=== PATIENT | male | born 1940 | race Caucasian/White ===

== ENCOUNTER 2017-06-20 10:40 | Inpatient (IN) | payer MEDICARE, BC ==
[2017-06-20 11:30] LABS: CHLORIDE,CL 100 mEq/L (98-106); SODIUM,NA 134 mEq/L (136-145)
--- NOTE | 2017-06-20 12:20 | EDM.PDOC ---
ED HPI GENERAL MEDICAL PROBLEM - General Chief Complaint: Syncope Stated Complaint: LOC-FEW SECONDS Time Seen by Provider: 06/20/17 11:10 Source of Information: Reports: Patient, Family History Limitations: Reports: No Limitations - History of Present Illness INITIAL COMMENTS - FREE TEXT/NARRATIVE: Patient presents to ER per EMS with syncopal episode. Has been experiencing cold symptoms for the last 3 days. States has been taking multiple doses of aspirin to "clean it out". Has had mild cough with phlegm production. Does believe he has had fevers as he has been flushed, hot and cold but has not checked his temp. He has not eaten much over the last 2 days. States has been drinking lots of fluids. Denies chest pain or shortness or breath. No palpitations. History of angioplasty in the 80s but has been stable since then other than having issues with his blood pressure at times. Has not noted any swelling in his legs as of late. Onset: Today, Sudden Duration: Day(s): (has been ill for several days, syncopal episode this am) Location: Reports: Head, Chest, Generalized Improves with: Reports: Rest Associated Symptoms: Reports: Cough, cough w sputum, Fever/Chills, Loss of Appetite, Shortness of Breath, Syncope, Weakness. 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 - Related Data Allergies Allergy/AdvReac Type Severity Reaction Status Date / Time No Known Allergies Allergy Verified 06/20/17 10:55 Home Meds: Home Meds Aspirin 325 mg PO DAILY 06/20/17 [History] Erythromycin Base [Erythromycin] 500 mg PO BID 06/20/17 [History] Erythromycin Stearate 500 mg PO BID 06/20/17 [History] Hydrochlorothiazide 25 mg PO DAILY 06/20/17 [History] Losartan Potassium 100 mg PO DAILY 06/20/17 [History] amLODIPine [Norvasc] 5 mg PO DAILY 06/20/17 [History] cloNIDine HCl [Catapres] 0.3 mg PO BID 06/20/17 [History] Past Medical History Cardiovascular History: Reports: Afib, Arrhythmia, Hypertension Gastrointestinal History: Reports: Hiatal Hernia - Past Surgical History HEENT Surgical History: Reports: Eye Surgery Social & Family History - Family History Family Medical History: Noncontributory - Tobacco Use Smoking Status *Q: Former Smoker Used Tobacco, but Quit: Yes Month Tobacco Last Used: 1980 - Caffeine Use Caffeine Use: Reports: Coffee - Recreational Drug Use Recreational Drug Use: No ED ROS GENERAL - Review of Systems Review Of Systems: See Below Constitutional: Reports: Fever, Chills, Malaise, Weakness, Fatigue, Decreased Appetite HEENT: Reports: Rhinitis, Sinus Problem. Denies: Ear Pain, Throat Pain, Vertigo Respiratory: Reports: Cough, Sputum. Denies: Shortness of Breath Cardiovascular: Denies: Chest Pain, Edema, Lightheadedness Endocrine: Reports: Fatigue GI/Abdominal: Reports: Decreased Appetite. Denies: Abdominal Pain, Nausea, Vomiting : Reports: No Symptoms Musculoskeletal: Reports: No Symptoms Skin: Reports: No Symptoms Neurological: Reports: Syncope, Weakness. Denies: Headache ED EXAM, GENERAL - Physical Exam Exam: See Below Exam Limited By: No Limitations General Appearance: Alert, WD/WN, No Apparent Distress Ears: Normal External Exam, Normal TMs Nose: Normal Inspection, Normal Mucosa, No Blood Throat/Mouth: Normal Inspection, Normal Oropharynx Head: Normocephalic Neck: Normal Inspection, Supple, Non-Tender Respiratory/Chest: No Respiratory Distress, Lungs Clear, Normal Breath Sounds Cardiovascular: Irregularly Irregular GI/Abdominal: Normal Bowel Sounds, Soft, Non-Tender Extremities: Normal Inspection, No Pedal Edema Neurological: Alert, Oriented Psychiatric: Normal Affect, Normal Mood Skin Exam: Warm, Dry Course - Vital Signs Last Recorded V/S: Last Vital Signs Temp 101.4 F H 06/20/17 12:41 Pulse 79 06/20/17 12:41 Resp 18 06/20/17 12:41 BP 96/50 L 06/20/17 12:41 Pulse Ox 94 L 06/20/17 12:41 - Orders/Labs/Meds Orders: Active Orders 24 hr Category Date Time Status Patient Status [ADT] Routine ADT 06/20/17 12:41 Active Cardiac Monitoring [RC] Care 06/20/17 12:41 Active Oxygen Therapy [RC] .PRN Care 06/20/17 12:41 Active Peripheral IV Care [RC] 799,1999 Care 06/20/17 12:41 Active RT Aerosol Therapy [RC] .PRN Care 06/20/17 12:41 Active Up With Assistance [RC] .PRN Care 06/20/17 12:41 Active Vital Signs [RC] 0000,0400,0800,1200,1600,2000 Care 06/20/17 12:41 Active Regular Diet [DIET] Diet 06/20/17 Lunch Active Ang Chest [CT] Routine Exams 06/20/17 12:41 Taken Chest 2V [CR] Stat Exams 06/20/17 11:03 Taken Echo Comp wo Cont [US] Routine Exams 06/20/17 12:41 Ordered Head wo Cont [CT] Stat Exams 06/20/17 11:19 Taken BASIC METABOLIC PANEL,BMP [CHEM] AM Lab 06/21/17 05:11 Ordered C-REACTIVE PROTEIN [CHEM] AM Lab 06/21/17 05:11 Ordered CBC WITH AUTO DIFF [HEME] AM Lab 06/21/17 05:11 Ordered UA W/MICROSCOPIC [URIN] Stat Lab 06/20/17 11:03 Uncollected Acetaminophen [Tylenol] Med 06/20/17 12:41 Active 650 mg PO Q4H PRN Albuterol/Ipratropium [DuoNeb 3.0-0.5 MG/3 ML] Med 06/20/17 12:41 Active 3 ml NEB Q4H PRN Aspirin [Ecotrin] Med 06/21/17 08:00 Active 325 mg PO DAILY Azithromycin [Zithromax] 500 mg Med 06/20/17 13:00 Active Sodium Chloride 0.9% [Normal Saline] 250 ml IV Q24H Hydrochlorothiazide Med 06/21/17 08:00 Active 25 mg PO DAILY Losartan [Cozaar] Med 06/21/17 08:00 Active 100 mg PO DAILY Metoprolol Succinate [Toprol XL] Med 06/21/17 08:00 Active 50 mg PO DAILY Ondansetron [Zofran ODT] Med 06/20/17 12:41 Active 4 mg PO Q4H PRN Ondansetron [Zofran] Med 06/20/17 12:41 Active 4 mg IV Q4H PRN Sodium Chloride 0.9% [Normal Saline] 1,000 ml Med 06/20/17 12:45 Active IV ASDIRECTED Sodium Chloride 0.9% [Saline Flush] Med 06/20/17 12:41 Active 10 ml FLUSH ASDIRECTED PRN Temazepam [Restoril] Med 06/20/17 12:41 Active 15 mg PO BEDTIME PRN Warfarin [Coumadin] Med 06/20/17 12:45 Active 5 mg PO DAILY@1200 cefTRIAXone [Rocephin] Med 06/20/17 13:00 Active 1 gm IVPUSH Q24H Peripheral IV Insertion Adult [OM.PC] Routine Oth 06/20/17 12:41 Ordered Resuscitation Status Routine Resus Stat 06/20/17 12:31 Ordered Medication Orders Acetaminophen (Tylenol) 650 mg PO Q4H PRN PRN Reason: Pain (Mild 1-3)/fever Last Admin: 06/20/17 13:11 Dose: 650 mg Albuterol/Ipratropium (Duoneb 3.0-0.5 Mg/3 Ml) 3 ml NEB Q4H PRN PRN Reason: Shortness Of Breath/wheezing Aspirin (Ecotrin) 325 mg PO DAILY [facility] Ceftriaxone Sodium (Rocephin) 1 gm IVPUSH Q24H [facility] Last Admin: 06/20/17 13:12 Dose: 1 gm Hydrochlorothiazide (Hydrochlorothiazide) 25 mg PO DAILY [facility] Azithromycin 500 mg/ Sodium (Chloride) 250 mls @ 250 mls/hr IV Q24H [facility] Last Admin: 06/20/17 13:11 Dose: 250 mls/hr Sodium Chloride (Normal Saline) 1,000 mls @ 75 mls/hr IV ASDIRECTED [facility] Last Admin: 06/20/17 13:12 Dose: 75 mls/hr Losartan Potassium (Cozaar) 100 mg PO DAILY [facility] Metoprolol Succinate (Toprol Xl) 50 mg PO DAILY [facility] Ondansetron HCl (Zofran Odt) 4 mg PO Q4H PRN PRN Reason: nausea, able to take PO Ondansetron HCl (Zofran) 4 mg IV Q4H PRN PRN Reason: Nausea/Vomiting Sodium Chloride (Saline Flush) 10 ml FLUSH ASDIRECTED PRN PRN Reason: Keep Vein Open Temazepam (Restoril) 15 mg PO BEDTIME PRN PRN Reason: Sleep Warfarin Sodium (Coumadin) 5 mg PO DAILY@1200 [facility] Last Admin: 06/20/17 13:12 Dose: 5 mg Labs: Laboratory Tests 06/20/17 06/20/17 06/20/17 Range/Units 11:10 11:10 11:19 WBC 6.2 (5.0-10.0) 10^3/uL RBC 4.48 L (4.50-6.00) 10^6/uL Hgb 14.5 (14.0-18.0) g/dL Hct 42.5 (40.0-54.0) % MCV 94.9 H (82.0-94.0) fL MCH 32.4 H (27.0-32.0) pg MCHC 34.1 (33.0-38.0) g/dL RDW Coeff of Radha 12.6 (11.0-15.0) % Plt Count 148 L (150-400) 10^3/uL Neut % (Auto) 77.2 (35-85) % Lymph % (Auto) 7.7 L (10-55) % [place] % (Auto) 14.6 (0-16) % Eos % (Auto) 0 (0-5) % Baso % (Auto) 0.5 (0-3) % Neut # (Auto) 4.80 (1.80-7.00) 10^3/uL Lymph # (Auto) 0.48 L (1.00-4.80) 10^3/uL [place] # (Auto) 0.91 H (0.00-0.80) 10^3/uL Eos # (Auto) 0.00 (0.00-0.45) 10^3/uL Baso # (Auto) 0.03 10^3/uL PT (9.7-12.3) SEC INR (0.92-1.18) D-Dimer, Quantitative 2.05 H (0.00-0.50) Sodium 134 L (136-145) mEq/L Potassium 4.0 (3.5-5.0) mEq/L Chloride 100 (98-106) mEq/L Carbon Dioxide 26 (21-32) mmol/L BUN 20 H (7-18) mg/dL Creatinine 1.6 H (0.7-1.3) mg/dL Est Cr Clr Drug Dosing 38.59 mL/min Estimated GFR (MDRD) 42 L (>=60) mL/min Glucose 125 H (75-99) mg/dL Calcium 8.3 L (8.4-10.1) mg/dL Total Bilirubin 0.7 (0.0-1.0) mg/dL AST 25 (15-37) U/L ALT 30 (12-78) U/L Alkaline Phosphatase 63 (46-116) U/L Lactate Dehydrogenase 126 (100-190) U/L Creatine Kinase 60 (35-232) U/L Troponin I < 0.017 (0.00-0.06) ng/mL C-Reactive Protein 6.9 H (0.2-0.8) mg/dL Total Protein 7.3 (6.4-8.2) g/dL Albumin 3.4 (3.4-5.0) g/dL 06/20/17 Range/Units 11:19 WBC (5.0-10.0) 10^3/uL RBC (4.50-6.00) 10^6/uL Hgb (14.0-18.0) g/dL Hct (40.0-54.0) % MCV (82.0-94.0) fL MCH (27.0-32.0) pg MCHC (33.0-38.0) g/dL RDW Coeff of Radha (11.0-15.0) % Plt Count (150-400) 10^3/uL Neut % (Auto) (35-85) % Lymph % (Auto) (10-55) % [place] % (Auto) (0-16) % Eos % (Auto) (0-5) % Baso % (Auto) (0-3) % Neut # (Auto) (1.80-7.00) 10^3/uL Lymph # (Auto) (1.00-4.80) 10^3/uL [place] # (Auto) (0.00-0.80) 10^3/uL Eos # (Auto) (0.00-0.45) 10^3/uL Baso # (Auto) 10^3/uL PT 12.6 H (9.7-12.3) SEC INR 1.16 (0.92-1.18) D-Dimer, Quantitative (0.00-0.50) Sodium (136-145) mEq/L Potassium (3.5-5.0) mEq/L Chloride (98-106) mEq/L Carbon Dioxide (21-32) mmol/L BUN (7-18) mg/dL Creatinine (0.7-1.3) mg/dL Est Cr Clr Drug Dosing mL/min Estimated GFR (MDRD) (>=60) mL/min Glucose (75-99) mg/dL Calcium (8.4-10.1) mg/dL Total Bilirubin (0.0-1.0) mg/dL AST (15-37) U/L ALT (12-78) U/L Alkaline Phosphatase (46-116) U/L Lactate Dehydrogenase (100-190) U/L Creatine Kinase (35-232) U/L Troponin I (0.00-0.06) ng/mL C-Reactive Protein (0.2-0.8) mg/dL Total Protein (6.4-8.2) g/dL Albumin (3.4-5.0) g/dL Meds: Medications Generic Name Dose Route Start Last Admin Trade Name Freq PRN Reason Stop Dose Admin Acetaminophen 650 mg 06/20/17 12:41 06/20/17 13:11 Tylenol PO 650 mg Q4H PRN Administration Pain (Mild 1-3)/fever Albuterol/Ipratropium 3 ml 06/20/17 12:41 Duoneb 3.0-0.5 Mg/3 Ml NEB Q4H PRN Shortness Of Breath/wheezing Aspirin 325 mg 06/21/17 08:00 Ecotrin PO DAILY [facility] Ceftriaxone Sodium 1 gm 06/20/17 13:00 06/20/17 13:12 Rocephin IVPUSH 1 gm Q24H GIAN Administration Hydrochlorothiazide 25 mg 06/21/17 08:00 Hydrochlorothiazide PO DAILY [facility] Azithromycin 500 mg/ Sodium 250 mls @ 250 mls/hr 06/20/17 13:00 06/20/17 13: 11 Chloride IV 250 mls/hr Q24H GIAN Administration Sodium Chloride 1,000 mls @ 75 mls/hr 06/20/17 12:45 06/20/17 13:12 Normal Saline IV 75 mls/hr ASDIRECTED GIAN Administration Losartan Potassium 100 mg 06/21/17 08:00 Cozaar PO DAILY [facility] Metoprolol Succinate 50 mg 06/21/17 08:00 Toprol Xl PO DAILY [facility] Ondansetron HCl 4 mg 06/20/17 12:41 Zofran Odt PO Q4H PRN nausea, able to take PO Ondansetron HCl 4 mg 06/20/17 12:41 Zofran IV Q4H PRN Nausea/Vomiting Sodium Chloride 10 ml 06/20/17 12:41 Saline Flush FLUSH ASDIRECTED PRN Keep Vein Open Temazepam 15 mg 06/20/17 12:41 Restoril PO BEDTIME PRN Sleep Warfarin Sodium 5 mg 06/20/17 12:45 06/20/17 13:12 Coumadin PO 5 mg DAILY@1200 GIAN Administration Discontinued Medications Generic Name Dose Route Start Last Admin Trade Name Raf PRN Reason Stop Dose Admin Iopamidol 100 ml 06/20/17 12:49 06/20/17 13:13 Isovue-370 (76%) IVPUSH 06/20/17 12:50 100 ml ONETIME ONE Administration - Re-Assessments/Exams Free Text/Narrative Re-Assessment/Exam: 06/20/17 1230 Discussed all lab results and EKG findings with patient and . Advised of medications changes on admit. Will pursue CT scan to rule out PE. Departure - Departure Time of Disposition: 12:14 Disposition: Admitted As Inpatient 67 Condition: Fair Clinical Impression: Syncope, Atrial fibrillation, new onset Pneumonia Qualifiers: Pneumonia type: due to unspecified organism Laterality: right Lung location: lower lobe of lung Qualified Code(s): J18.1 - Lobar pneumonia, unspecified organism - Problem List & Annotations (1) Atrial fibrillation, new onset SNOMED Code(s): 47254336 Code(s): I48.91 - UNSPECIFIED ATRIAL FIBRILLATION Status: Acute Priority : High Current Visit: Yes (2) Pneumonia SNOMED Code(s): 461271271 Code(s): J18.9 - PNEUMONIA, UNSPECIFIED ORGANISM Status: Acute Priority: High Current Visit: Yes Qualifiers: Pneumonia type: due to unspecified organism Laterality: right Lung location: lower lobe of lung Qualified Code(s): J18.1 - Lobar pneumonia, unspecified organism (3) Syncope SNOMED Code(s): 505440188 Code(s): R55 - SYNCOPE AND COLLAPSE Status: Acute Priority: High Current Visit: Yes - Problem List Review Problem List Initiated/Reviewed/Updated: Yes - My Orders Last 24 Hours: My Active Orders 06/20/17 11:03 Chest 2V [CR] Stat UA W/MICROSCOPIC [URIN] Stat 06/20/17 11:19 Head wo Cont [CT] Stat 06/20/17 12:31 Resuscitation Status Routine 06/20/17 12:41 Patient Status [ADT] Routine Cardiac Monitoring [RC] 799,1999 Oxygen Therapy [RC] .PRN Peripheral IV Care [RC] RT Aerosol Therapy [RC] .PRN Up With Assistance [RC] .PRN Vital Signs [RC] 0000,0400,0800,1200,1600,1999 Ang Chest [CT] Routine Echo Comp wo Cont [US] Routine Acetaminophen [Tylenol] 650 mg PO Q4H PRN Albuterol/Ipratropium [DuoNeb 3.0-0.5 MG/3 ML] 3 ml NEB Q4H PRN Ondansetron [Zofran ODT] 4 mg PO Q4H PRN Ondansetron [Zofran] 4 mg IV Q4H PRN Sodium Chloride 0.9% [Saline Flush] 10 ml FLUSH ASDIRECTED PRN Temazepam [Restoril] 15 mg PO BEDTIME PRN Peripheral IV Insertion Adult [OM.PC] Routine 06/20/17 12:45 Sodium Chloride 0.9% [Normal Saline] 1,000 ml IV ASDIRECTED Warfarin [Coumadin] 5 mg PO DAILY@1200 06/20/17 13:00 Azithromycin [Zithromax] 500 mg Sodium Chloride 0.9% [Normal Saline] 250 ml IV Q24H cefTRIAXone [Rocephin] 1 gm IVPUSH Q24H 06/20/17 Lunch Regular Diet [DIET] 06/21/17 05:11 BASIC METABOLIC PANEL,BMP [CHEM] AM C-REACTIVE PROTEIN [CHEM] AM CBC WITH AUTO DIFF [HEME] AM 06/21/17 08:00 Aspirin [Ecotrin] 325 mg PO DAILY Hydrochlorothiazide 25 mg PO DAILY Losartan [Cozaar] 100 mg PO DAILY Metoprolol Succinate [Toprol XL] 50 mg PO DAILY - Assessment/Plan Admission H&P: Please use this note as an admission H&P Last 24 Hours: My Active Orders 06/20/17 11:03 Chest 2V [CR] Stat UA W/MICROSCOPIC [URIN] Stat 06/20/17 11:19 Head wo Cont [CT] Stat 06/20/17 12:31 Resuscitation Status Routine 06/20/17 12:41 Patient Status [ADT] Routine Cardiac Monitoring [RC] 799,1999 Oxygen Therapy [RC] .PRN Peripheral IV Care [RC] 08,1999 RT Aerosol Therapy [RC] .PRN Up With Assistance [RC] .PRN Vital Signs [RC] 0000,0400,0800,1200,1600,1999 Ang Chest [CT] Routine Echo Comp wo Cont [US] Routine Acetaminophen [Tylenol] 650 mg PO Q4H PRN Albuterol/Ipratropium [DuoNeb 3.0-0.5 MG/3 ML] 3 ml NEB Q4H PRN Ondansetron [Zofran ODT] 4 mg PO Q4H PRN Ondansetron [Zofran] 4 mg IV Q4H PRN Sodium Chloride 0.9% [Saline Flush] 10 ml FLUSH ASDIRECTED PRN Temazepam [Restoril] 15 mg PO BEDTIME PRN Peripheral IV Insertion Adult [OM.PC] Routine 06/20/17 12:45 Sodium Chloride 0.9% [Normal Saline] 1,000 ml IV ASDIRECTED Warfarin [Coumadin] 5 mg PO DAILY@1200 06/20/17 13:00 Azithromycin [Zithromax] 500 mg Sodium Chloride 0.9% [Normal Saline] 250 ml IV Q24H cefTRIAXone [Rocephin] 1 gm IVPUSH Q24H 06/20/17 Lunch Regular Diet [DIET] 06/21/17 05:11 BASIC METABOLIC PANEL,BMP [CHEM] AM C-REACTIVE PROTEIN [CHEM] AM CBC WITH AUTO DIFF [HEME] AM 06/21/17 08:00 Aspirin [Ecotrin] 325 mg PO DAILY Hydrochlorothiazide 25 mg PO DAILY Losartan [Cozaar] 100 mg PO DAILY Metoprolol Succinate [Toprol XL] 50 mg PO DAILY Assessment:: RLL Pneumonia New Onset Atrial Fib Syncope Plan: Admit to acute. Will start IV Rocephin and zithromax. Coumadin 5 mg daily. Daily INR. Echocardiogram. CT to rule out PE due to atrial fib and elevated d- dimer as well as syncopal episode. Patient will switch to Toprol, stop Clonodine and Amlodopine. Dr. Jacobs aware of admission and agrees with plan.
[2017-06-20] MEDS ORDERED: Temazepam 15 MG Cap PO PRN (12:41)
[2017-06-20] MEDS ORDERED: Albuterol/Ipratropium 3.0-0.5 MG/3 ML Neb Soln NEB PRN (12:41)
[2017-06-20] MEDS ORDERED: Ondansetron 4 MG Tab.DIS PO PRN (12:41)
[2017-06-20] MEDS ORDERED: Sodium Chloride 0.9% 10 ML Syringe FLUSH PRN (12:41)
[2017-06-20] MEDS ORDERED: Ondansetron 4 MG/2 ML SDV IV PRN (12:41)
[2017-06-20] MEDS ORDERED: Iopamidol 755 Mg/ML 100 ML Bottle IVPUSH ONE (12:49)
[2017-06-20] MEDS: Acetaminophen 325 MG Tab PO PRN ×2 (13:11→23:39)
[2017-06-20] MEDS: Azithromycin 500 MG in Sodium Chloride 0.9% 250 ML IV SCH (13:11)
[2017-06-20] MEDS: cefTRIAXone 1 GM Vial IVPUSH SCH (13:12)
[2017-06-20] MEDS: Sodium Chloride 0.9% 1,000 ML IV SCH (13:12)
[2017-06-20] MEDS: Warfarin 5 MG Tab PO SCH (13:12)
[2017-06-20] MEDS: Enoxaparin 40 MG/0.4 ML Syringe SUBCUT SCH (19:55)
[2017-06-21] MEDS: Sodium Chloride 0.9% 1,000 ML IV SCH ×2 (05:58→21:39)
[2017-06-21] MEDS: Losartan 100 MG Tab PO SCH (07:51)
[2017-06-21] MEDS: Metoprolol Succinate 25 MG Tab.ER PO SCH (07:51)
[2017-06-21] MEDS: Hydrochlorothiazide 25 MG Tab PO SCH (07:51)
[2017-06-21] MEDS ORDERED: Aspirin 325 MG Tab.EC PO SCH (08:00)
[2017-06-21] MEDS: Warfarin 5 MG Tab PO SCH (12:55)
[2017-06-21] MEDS: Acetaminophen 325 MG Tab PO PRN ×3 (13:16→21:40)
[2017-06-21] MEDS: cefTRIAXone 1 GM Vial IVPUSH SCH (13:17)
[2017-06-21] MEDS: Azithromycin 500 MG in Sodium Chloride 0.9% 250 ML IV SCH (13:17)
[2017-06-21] MEDS: Enoxaparin 40 MG/0.4 ML Syringe SUBCUT SCH (19:32)
--- NOTE | 2017-06-21 20:35 | PCM.PN ---
- General Info Date of Service: 06/21/17 Admission Dx/Problem (Free Text): New Onset Atrial Fib Bronchitis Syncope Functional Status: Reports: Pain Controlled, Tolerating Diet, Ambulating - Review of Systems General: Reports: Fever, Weakness, Fatigue HEENT: Reports: Sinus Congestion, Rhinitis Pulmonary: Reports: Cough. Denies: Shortness of Breath, Sputum Cardiovascular: Denies: Chest Pain, Edema, Lightheadedness Gastrointestinal: Denies: Abdominal Pain, Nausea, Vomiting Genitourinary: Reports: No Symptoms Musculoskeletal: Reports: No Symptoms Skin: Reports: No Symptoms Neurological: Reports: No Symptoms - Patient Data Vitals - Most Recent: Last Vital Signs Temp 100.3 F 06/21/17 19:49 Pulse 84 06/21/17 19:49 Resp 18 06/21/17 19:49 BP 156/67 H 06/21/17 19:49 Pulse Ox 95 06/21/17 19:49 Weight - Most Recent: 236 lb 12.423 oz I&O - Last 24 Hours: Intake & Output 06/21/17 06/21/17 06/21/17 06:59 14:59 22:59 Intake Total 1999 Balance 1999 Lab Results Last 24 Hours: Laboratory Results - last 24 hr 06/21/17 06/21/17 06/21/17 Range/Units 06:50 06:50 06:50 WBC 4.9 L (5.0-10.0) 10^3/uL RBC 4.69 (4.50-6.00) 10^6/uL Hgb 15.0 (14.0-18.0) g/dL Hct 44.4 (40.0-54.0) % MCV 94.7 H (82.0-94.0) fL MCH 32.0 (27.0-32.0) pg MCHC 33.8 (33.0-38.0) g/dL RDW Coeff of Radha 12.5 (11.0-15.0) % Plt Count 130 L (150-400) 10^3/uL Neut % (Auto) 48.3 (35-85) % Lymph % (Auto) 26.7 (10-55) % [place] % (Auto) 24.2 H (0-16) % Eos % (Auto) 0.4 (0-5) % Baso % (Auto) 0.4 (0-3) % Neut # (Auto) 2.35 (1.80-7.00) 10^3/uL Lymph # (Auto) 1.30 (1.00-4.80) 10^3/uL [place] # (Auto) 1.18 H (0.00-0.80) 10^3/uL Eos # (Auto) 0.02 (0.00-0.45) 10^3/uL Baso # (Auto) 0.02 10^3/uL PT 12.2 (9.7-12.3) SEC INR 1.13 (0.92-1.18) Sodium 138 (136-145) mEq/L Potassium 4.2 (3.5-5.0) mEq/L Chloride 103 (98-106) mEq/L Carbon Dioxide 28 (21-32) mmol/L BUN 21 H (7-18) mg/dL Creatinine 1.4 H (0.7-1.3) mg/dL Est Cr Clr Drug Dosing 44.11 mL/min Estimated GFR (MDRD) 49 L (>=60) mL/min Glucose 102 H (75-99) mg/dL Calcium 8.4 (8.4-10.1) mg/dL C-Reactive Protein 7.8 H (0.2-0.8) mg/dL Med Orders - Current: Current Medications Acetaminophen (Tylenol) 650 mg PO Q4H PRN PRN Reason: Pain (Mild 1-3)/fever Last Admin: 06/21/17 17:38 Dose: 650 mg Albuterol/Ipratropium (Duoneb 3.0-0.5 Mg/3 Ml) 3 ml NEB Q4H PRN PRN Reason: Shortness Of Breath/wheezing Ceftriaxone Sodium (Rocephin) 1 gm IVPUSH Q24H [facility] Last Admin: 06/21/17 13:17 Dose: 1 gm Enoxaparin Sodium (Lovenox) 40 mg SUBCUT Q24H [facility] Last Admin: 06/21/17 19:32 Dose: 40 mg Hydrochlorothiazide (Hydrochlorothiazide) 25 mg PO DAILY [facility] Last Admin: 06/21/17 07:51 Dose: 25 mg Azithromycin 500 mg/ Sodium (Chloride) 250 mls @ 250 mls/hr IV Q24H [facility] Last Admin: 06/21/17 13:17 Dose: 250 mls/hr Sodium Chloride (Normal Saline) 1,000 mls @ 75 mls/hr IV ASDIRECTED [facility] Last Admin: 06/21/17 05:58 Dose: 75 mls/hr Losartan Potassium (Cozaar) 100 mg PO DAILY [facility] Last Admin: 06/21/17 07:51 Dose: 100 mg Metoprolol Succinate (Toprol Xl) 50 mg PO DAILY [facility] Last Admin: 06/21/17 07:51 Dose: 50 mg Ondansetron HCl (Zofran Odt) 4 mg PO Q4H PRN PRN Reason: nausea, able to take PO Ondansetron HCl (Zofran) 4 mg IV Q4H PRN PRN Reason: Nausea/Vomiting Sodium Chloride (Saline Flush) 10 ml FLUSH ASDIRECTED PRN PRN Reason: Keep Vein Open Temazepam (Restoril) 15 mg PO BEDTIME PRN PRN Reason: Sleep Warfarin Sodium (Coumadin) 5 mg PO DAILY@1200 [facility] Last Admin: 06/21/17 12:55 Dose: 5 mg Discontinued Medications Aspirin (Ecotrin) 325 mg PO DAILY [facility] Last Admin: 06/21/17 08:44 Dose: Not Given Iopamidol (Isovue-370 (76%)) 100 ml IVPUSH ONETIME ONE Stop: 06/20/17 12:50 Last Admin: 06/20/17 13:13 Dose: 100 ml - Exam General: Alert, Oriented HEENT: Mucous Membr. Moist/[place] Neck: Supple Lungs: Clear to Auscultation, Normal Respiratory Effort Cardiovascular: Irregular Rhythm GI/Abdominal Exam: Normal Bowel Sounds, Soft, Non-Tender Extremities: Normal Inspection, No Pedal Edema Skin: Warm, Dry Neurological: No New Focal Deficit - Problem List & Annotations (1) Atrial fibrillation, new onset SNOMED Code(s): 87746851 Code(s): I48.91 - UNSPECIFIED ATRIAL FIBRILLATION Status: Acute Priority : High Current Visit: Yes (2) Pneumonia SNOMED Code(s): 443150035 Code(s): J18.9 - PNEUMONIA, UNSPECIFIED ORGANISM Status: Acute Priority: High Current Visit: Yes Qualifiers: Pneumonia type: due to unspecified organism Laterality: right Lung location: lower lobe of lung Qualified Code(s): J18.1 - Lobar pneumonia, unspecified organism (3) Syncope SNOMED Code(s): 892519953 Code(s): R55 - SYNCOPE AND COLLAPSE Status: Acute Priority: High Current Visit: Yes - Problem List Review Problem List Initiated/Reviewed/Updated: Yes - My Orders Last 24 Hours: My Active Orders 06/20/17 20:00 Enoxaparin [Lovenox] 40 mg SUBCUT Q24H 06/21/17 09:10 Carotid Comp [US] Routine 06/22/17 12:45 INR,PT,PROTHROMBIN TIME [COAG] DAILY - Assessment Assessment:: Syncope New Onset Atrial Fib Pneumonia - Plan Plan:: Patient doing well, does have generalized malaise but improving. Did spike a fever last evening. Appetite fair, admits not drinking fluids all that well. Denies feeling lightheaded today. Has been ambulating to bathroom without symptoms. WBC stable at 4.9, CRP increased to 7.8. INR subtherapeutic at 1.13. Continue IV antibiotics, Coumadin. Encourage ambulation. Obtain carotid ultrasound. Possible discharge in am if continues to improve.
[2017-06-22] MEDS: Acetaminophen 325 MG Tab PO PRN (04:06)
[2017-06-22] MEDS: Hydrochlorothiazide 25 MG Tab PO SCH (08:15)
[2017-06-22] MEDS: Losartan 100 MG Tab PO SCH (08:15)
[2017-06-22] MEDS: Metoprolol Succinate 25 MG Tab.ER PO SCH (08:16)
--- NOTE | 2017-06-22 20:52 | PCM.DCSUM1 ---
Discharge Summary - Hospital Course Free Text/Narrative:: Patient presented to ER per EMS with concerns with syncopal episode. Had not been feeling well for the last 3 days, mild cough and malaise. Probable fever at home. Had been up at the table for breakfast. Was getting up to the bathroom when had syncopal episode lasting for a few seconds. He was noted to have changes in orthostatic blood pressures per EMS. EKG done at scene and in ER noted, atrial fib, new onset for patient. WBC normal, elevated CRP at 6.9. D-dimer elevated, CT scan done to rule out PE negative. Admitted and started on Rocephin, Coumadin. Blood pressure meds adjusted. Stopped amlodopine and catapress, started Toprol for new onset atrial fib and rate control. - Discharge Data Discharge Date: 06/22/17 Discharge Disposition: Home, Self-Care 01 Condition: Fair - Discharge Diagnosis/Problem(s) (1) Atrial fibrillation, new onset SNOMED Code(s): 14899840 ICD Code: I48.91 - UNSPECIFIED ATRIAL FIBRILLATION Status: Acute Priority : High (2) Pneumonia SNOMED Code(s): 769476125 ICD Code: J18.9 - PNEUMONIA, UNSPECIFIED ORGANISM Status: Acute Priority : High Qualifiers: Pneumonia type: due to unspecified organism Laterality: right Lung location: lower lobe of lung Qualified Code(s): J18.1 - Lobar pneumonia, unspecified organism (3) Syncope SNOMED Code(s): 672541523 ICD Code: R55 - SYNCOPE AND COLLAPSE Status: Acute Priority: High - Patient Summary/Data Complications: none Hospital Course: Patient is feeling good today. Less sinus and chest congestion. Ambulating and tolerating well. Minimal cough. Did spike a fever yet last evening, controlled with tylenol. Cardiac rhythm remains in atrial fib with controlled rate. Blood pressure stable with medication changes. WBC today 4.9. INR only 1.17 yet. Receiving Coumadin 5 mg daily, Rocephin IV. Did obtain carotid ultrasound and echocardiogram. Awaiting overall read. CT scan of the head was negative. Will discharge home on Ceftin. Coumadin 5 mg daily. Continue Toprol in addition to Losartan and HCTZ. Follow up with Dr. Dooley on Monday, repeat INR at that time. - Patient Instructions Diet: Usual Diet as Tolerated Activity: As Tolerated - Discharge Plan Prescriptions/Med Rec: Cefuroxime [Ceftin] 500 mg PO BID #20 tablet Metoprolol Succinate [Toprol XL] 50 mg PO DAILY #30 tab.er Warfarin [Coumadin] 5 mg PO DAILY@1200 #30 tablet Home Medications: Home Meds Hydrochlorothiazide 25 mg PO DAILY 06/20/17 [History] Losartan Potassium 100 mg PO DAILY 06/20/17 [History] Cefuroxime [Ceftin] 500 mg PO BID #20 tablet 06/22/17 [Rx] Metoprolol Succinate [Toprol XL] 50 mg PO DAILY #30 tab.er 06/22/17 [Rx] Warfarin [Coumadin] 5 mg PO DAILY@1200 #30 tablet 06/22/17 [Rx] Patient Handouts: Community-Acquired Pneumonia, Adult Forms: ED Department Discharge Referrals: Wander Dooley MD [Primary Care Provider] - (Follow up on Monday with Dr. Dooley , INR at that time) - Discharge Summary/Plan Comment DC Time >30 min.: No Discharge Summary/Plan Comment: Discharge home. Continue Coumadin daily. Ceftin 500 mg BID. Toprol XL 50 mg daily, Losartan and HCTZ. Recheck with Dr. Dooley on Monday. - General Info Date of Service: 06/22/17 Admission Dx/Problem (Free Text: New Onset Atrial Fib Bronchitis Syncope Functional Status: Reports: Pain Controlled, Tolerating Diet, Ambulating - Review of Systems General: Reports: Fever. Denies: Weakness, Fatigue HEENT: Reports: Sinus Congestion, Rhinitis Pulmonary: Reports: Cough. Denies: Shortness of Breath, Sputum Cardiovascular: Denies: Chest Pain, Edema, Lightheadedness Gastrointestinal: Denies: Abdominal Pain, Nausea, Vomiting Musculoskeletal: Reports: No Symptoms Skin: Reports: No Symptoms Neurological: Reports: No Symptoms - Patient Data Vitals - Most Recent: Last Vital Signs Temp 99.4 F 06/22/17 08:00 Pulse 106 H 06/22/17 08:16 Resp 20 06/22/17 08:00 BP 145/76 H 06/22/17 08:16 Pulse Ox 95 06/22/17 08:00 Weight - Most Recent: 236 lb 12.423 oz Lab Results - Last 24 hrs: Laboratory Results - last 24 hr 06/22/17 Range/Units 07:00 PT 12.7 H (9.7-12.3) SEC INR 1.17 (0.92-1.18) Med Orders - Current: Current Medications Discontinued Medications Acetaminophen (Tylenol) 650 mg PO Q4H PRN PRN Reason: Pain (Mild 1-3)/fever Last Admin: 06/22/17 04:06 Dose: 650 mg Albuterol/Ipratropium (Duoneb 3.0-0.5 Mg/3 Ml) 3 ml NEB Q4H PRN PRN Reason: Shortness Of Breath/wheezing Aspirin (Ecotrin) 325 mg PO DAILY [facility] Last Admin: 06/21/17 08:44 Dose: Not Given Ceftriaxone Sodium (Rocephin) 1 gm IVPUSH Q24H [facility] Last Admin: 06/21/17 13:17 Dose: 1 gm Enoxaparin Sodium (Lovenox) 40 mg SUBCUT Q24H [facility] Last Admin: 06/21/17 19:32 Dose: 40 mg Hydrochlorothiazide (Hydrochlorothiazide) 25 mg PO DAILY [facility] Last Admin: 06/22/17 08:15 Dose: 25 mg Azithromycin 500 mg/ Sodium (Chloride) 250 mls @ 250 mls/hr IV Q24H [facility] Last Admin: 06/21/17 13:17 Dose: 250 mls/hr Sodium Chloride (Normal Saline) 1,000 mls @ 75 mls/hr IV ASDIRECTED [facility] Last Admin: 06/21/17 21:39 Dose: 75 mls/hr Iopamidol (Isovue-370 (76%)) 100 ml IVPUSH ONETIME ONE Stop: 06/20/17 12:50 Last Admin: 06/20/17 13:13 Dose: 100 ml Losartan Potassium (Cozaar) 100 mg PO DAILY [facility] Last Admin: 06/22/17 08:15 Dose: 100 mg Metoprolol Succinate (Toprol Xl) 50 mg PO DAILY [facility] Last Admin: 06/22/17 08:16 Dose: 50 mg Ondansetron HCl (Zofran Odt) 4 mg PO Q4H PRN PRN Reason: nausea, able to take PO Ondansetron HCl (Zofran) 4 mg IV Q4H PRN PRN Reason: Nausea/Vomiting Sodium Chloride (Saline Flush) 10 ml FLUSH ASDIRECTED PRN PRN Reason: Keep Vein Open Temazepam (Restoril) 15 mg PO BEDTIME PRN PRN Reason: Sleep Warfarin Sodium (Coumadin) 5 mg PO DAILY@1200 [facility] Last Admin: 06/21/17 12:55 Dose: 5 mg - Exam General: Reports: Alert, Oriented HEENT: Reports: Mucous Membr. Moist/[place] Neck: Reports: Supple Lungs: Reports: Clear to Auscultation, Normal Respiratory Effort Cardiovascular: Reports: Irregular Rhythm GI/Abdominal Exam: Normal Bowel Sounds, Soft, Non-Tender Extremities: Normal Inspection, No Pedal Edema Skin: Reports: Warm, Dry Neurological: Reports: No New Focal Deficit *Q Meaningful Use (DIS) - VTE *Q VTE Criteria *Q: - Stroke *Q Stroke Criteria *Q: - AMI *Q AMI Criteria *Q:
== END 2017-06-22 13:15 | disposition home or self-care (01) | DRG 308 ==
LOC: CC.ED 10:40 → CC.MS 12:11 → UNDOADMIN 12:11 → CC.MS 12:41
PROVIDERS: ADMIT Physician Assistant Medical; ATTEND Family Medicine
DX: I48.91 Unspecified atrial fibrillation (principal); J18.9 Pneumonia, unspecified organism; R55 Syncope and collapse; R53.81 Other malaise; R79.1 Abnormal coagulation profile; I10 Essential (primary) hypertension; K44.9 Diaphragmatic hernia without obstruction or gangrene; Z87.891 Personal history of nicotine dependence; Z79.82 Long term (current) use of aspirin; Z79.899 Other long term (current) drug therapy
CPT/HCPCS: 36415; 70450; 71046; 71275; 80048; 80053; 81001; 82550; 83615; 84484; 85025; 85379; 85610; 86140; 87804; 93005; 93306; 93880; 99285; A9270-GY; J0456; J0696; J1650; J7030; J7050; Q9967

== ENCOUNTER 2024-06-14 07:59 | Day surgery (SDC) | payer BC ==
[2024-06-14] MEDS: Lactated Ringers 1,000 ML IV SCH (08:18)
[2024-06-14] MEDS ORDERED: Ketamine 200 MG/20 ML MDV ONE (09:02)
[2024-06-14] MEDS ORDERED: Propofol 200 MG/20 ML SDV ONE ×2 (09:02)
[2024-06-14] MEDS ORDERED: Phenylephrine 1% 10 MG/ML SDV ONE (09:02)
[2024-06-14] MEDS ORDERED: fentaNYL 50 MCG/ML SDV ONE (09:02)
[2024-06-14] MEDS: Sodium Chloride 0.9% 250 ML IV STA (12:37)
== END 2024-06-14 11:10 | disposition home or self-care (01) ==
LOC: CC.SDS 07:59
PROVIDERS: ATTEND Family Medicine
DX: D12.3 Benign neoplasm of transverse colon (principal); K56.609 Unspecified intestinal obstruction, unspecified as to partial versus complete obstruction; K57.30 Diverticulosis of large intestine without perforation or abscess without bleeding; I10 Essential (primary) hypertension; I25.10 Atherosclerotic heart disease of native coronary artery without angina pectoris; I48.91 Unspecified atrial fibrillation; E78.5 Hyperlipidemia, unspecified; Z79.82 Long term (current) use of aspirin; Z79.899 Other long term (current) drug therapy
CPT/HCPCS: 00811; 45380; 45385; 99100; J2371; J2704; J3010; J3490; J7120